=== PATIENT | female | born 1955 | race Caucasian/White ===

== ENCOUNTER 2018-09-23 23:42 | Outpatient (CLI) | payer MEDICARE, OTHER | END 2018-09-23 23:43 | disposition critical access hospital (66) | LOC: EMS 23:42 | PROVIDERS: ATTEND Surgery | DX: I46.9 Cardiac arrest, cause unspecified (principal) | CPT/HCPCS: A0425; A0433 ==

== ENCOUNTER 2018-09-24 | Emergency (ER) | payer MEDICARE, OTHER ==
[2018-09-24] MEDS ORDERED: EPINEPHrine 1 MG/ML AMP ONE (00:15)
[2018-09-24] MEDS ORDERED: SODIUM BICARBONATE ABBOJECT 50 MEQ/50 ML SYRINGE IVP STA ×2 (00:23→01:00)
[2018-09-24] MEDS ORDERED: EPINEPHrine ABBOJECT 1 MG/10 ML SYRINGE IVP STA ×3 (00:23→02:13)
[2018-09-24] MEDS ORDERED: SODIUM CHLORIDE 0.9% 1,000 ML IV ONE (00:23)
--- NOTE | 2018-09-24 00:37 | ED Physician Documentation ---
PD HPI CPR - Stated complaint Stated Complaint: CARDIAC - Chief complaint Chief Complaint: Critical Care - History obtained from History obtained from: Family, EMS - History of Present Illness Timing - onset: How many minutes ago (40) Timing - onset during: Light activity Preceding symptoms: Weakness, Other (knee pain) Contributing factors: CAD, Other (liver problems from alcohol. The patient's ex- states she had had problems with her knees and significant arthritis. She had had chronic alcoholism and subsequent liver problems. She is not in liver failure per se that he knows of. She did not have any kidney problems. She has had some heart problems he believes.) Witnessed: Arrest witnessed (The patient was seen by her ex- to be complaining of her knee and then get pale and sweaty and then collapsed. He did not feel any pulses. He started CPR and called EMS. EMS found the patient to be pulseless with a slow heart rate in the 20s or 30s. They commenced ACLS measures and gave epinephrine. They also intubated the patient. They state she did have a fast heart rate at times and had a shockable rhythm of apparent V. tach twice. She did have palpable pulses after some interventions and was brought here to the ER. They said she had had pulses in a heart rhythm just at their arrival here.) Fall: No fall Bystander CPR: Bystander CPR EMS findings: Unresponsive, Agonal breathing, Pulseless, PEA, Bradycardia Treatment COMPUTING CONSULTANT: CPR, Defibrillated, Intubated, Epi, Atropine Advanced directive: No advanced directive Review of Systems Unable to obtain: Unresponsive PD PAST MEDICAL HISTORY - Past Medical History Cardiovascular: Hypertension GI: Cirrhosis Musculoskeletal: Osteoarthritis PD ED PE NORMAL - Vitals Vital signs reviewed: Yes - General General: Well developed/nourished, Other (Intubated with bag respirations. She had an intraosseous IV in place. The abdomen was not distended. She has not making any respiratory effort. Her pupils are fixed and dilated.) - HEENT HEENT: Atraumatic - Respiratory Respiratory: Clear bilaterally - Abdomen Abdomen: Non distended, Other (Bedside US did not show any free fluid. Quick limited view of upper aorta was 2.3 cm diameter. Cardiac activity was sluggish but did not show regional wall abnormality on limited view. Femoral pulses found on duplex, but not palpable. ) - Derm Derm: Warm and dry, Other (pale color) - Extremities Extremities: No deformity, No edema - Neuro Eye Opening: None Motor: None Verbal: None GCS Score: 3 Results - Vitals Vitals: Vital Signs - 24 hr 09/23/18 09/24/18 09/24/18 23:53 00:13 00:21 Heart Rate 58 L 37 L 78 Respiratory 10 L 12 20 Rate Blood Pressure 119/71 75/46 L 82/36 L O2 Saturation 100 100 100 09/24/18 09/24/18 09/24/18 00:26 00:32 00:52 Heart Rate 60 42 L Respiratory 12 25 H Rate Blood Pressure 55/37 L 58/19 L 196/142 H O2 Saturation 90 L 92 Oxygen O2 Source Ambu bag - Labs Labs: Laboratory Tests 09/24/18 09/24/18 09/24/18 00:52 00:52 00:52 WBC 6.1 RBC 2.17 L Hgb 7.7 L Hct 24.9 L MCV 115.2 H MCH 35.3 H MCHC 30.7 L RDW 20.0 H Plt Count 135 MPV 9.1 Neut # (Auto) Not Reportable Lymph # (Auto) Not Reportable Trinity # (Auto) Not Reportable Eos # (Auto) Not Reportable Baso # (Auto) Not Reportable Absolute Nucleated RBC Not Reportable Total Counted 100 Band Neuts % (Manual) 6 Abnorm Lymph % (Manual) 0 Nucleated RBC % Not Reportable Neutrophils # (Manual) 4.9 Lymphocytes # (Manual) 1.0 L Monocytes # (Manual) 0.1 Eosinophils # (Manual) 0.0 Basophils # (Manual) 0.0 Nucleated RBCs 1 Differential Comment MANUAL DIFFERENTIAL Platelet Estimate NORMAL (130-450,000) RBC Morph Micro Appear 1+ [place] Sodium 137 Potassium 7.1 H* Chloride 100 L Carbon Dioxide 9 L* Anion Gap 28.0 H BUN 15 Creatinine 1.1 H Estimated GFR (MDRD) 50 L Glucose 38 L* Calcium 6.4 L* Magnesium 2.9 H Total Bilirubin 1.9 H AST 4465 H ALT 999 H Alkaline Phosphatase 355 H Troponin I 1.11 H* Total Protein 4.0 L Albumin 1.9 L Globulin 2.1 Albumin/Globulin Ratio 0.9 L Lipase 205 H PD MEDICAL DECISION MAKING - ED course Complexity details: re-evaluated patient (By EMS report the patient had mainly bradycardia a cardiac rhythms and had received epinephrine and I believe they said atropine. She had had shockable rhythms of V. tach twice. She arrived by EMS without CPR in progress as they had had palpable pulses. She is intubated. First evaluation here once into the ER was no palpable pulses. CPR was resumed again. Her heart rhythm was bradycardic and irregular either junctional or A. fib with bundle branch block. She did have a quickening of the heart rate in response to epinephrine was going at a rate of 150-160. This did have the appearance of V. tach though it did slow down after a minute or so after the epi. She did have cardiac activity on bedside ultrasound there will looked globally sluggish. She had no palpable pulses but I could find Doppler pulses by ultrasound at the inguinal area. Her heart rate would slow down to the 30s or so after the epinephrine was wearing off. As such she was started on epi drip to support blood pressure and heart rate and also placed pacer pads on her and started pacing. She did have a pacer capture with response of 70 bpm. Again no palpable pulses but could find them by Doppler and her blood pressure was 60 systolic. We tried improved pressor support. I thought she would be stable enough for transfer but her blood pressure diminished and her cardiac act ivity diminished as well. Even with paced rhythm, the bedside ultrasound showed minimal cardiac response. I talked with her ex- who arrived to the ER and though the patient did not have a pulsed form, in discussion with him he felt her view on resuscitation that she would not want to be on ventilator or have impaired cognitive outcome and she had had several medical problems recently and was using a walker and had poor function with the left arm as well as alcoholism. The patient had a had prolonged hypoperfusion and CPR at times. She is now fixed and dilated on pupils and had had time enough for the EMS medications for sedation and paralyzed this paralysis to wear off and was not having any spontaneous respirations. CPR was intermittently done because of the lack of palpable pulses. However she had initially had Doppler pulses and cardiac activity. At this point about an hour into the resuscitation, I could not find any Doppler pulses and bedside echo with CPR held did not show any cardiac activity. There did not appear to be pacer capture, and the pacer was stopped and the underlying rythm was asystole/agonal beats. The code was then called.), considered differential (consider acute [place], aneurysmal bleed, PE, CHF, hypoxia, seizure among others.), d/w family (ex-, but has been in contact with her regularly) - Critical Care Time Includes: Direct patient care, Document care, Coordinate care, Family consult for tx dec Data interpretation: Pulse ox Procedures excluded from critical care time: CPR Departure - Departure Disposition: 20 Clinical Impression: Cardiopulmonary arrest Condition: Critical Record reviewed to determine appropriate education?: No Discharge Date/Time: 09/24/18 02:12
[2018-09-24] MEDS ORDERED: DOPamine 800 MG/500 ML 800 MG/500 ML BAG IV STA (01:00)
[2018-09-24] MEDS ORDERED: EPINEPHrine 4 MG in DEXTROSE 5% 246 ML IV SCH (01:00)
[2018-09-24 01:08] LABS: BASOPHILS % (AUTO) 1.5 %; EOSINOPHILS % (AUTO) 0.2 %; HGB - HEMOGLOBIN 7.7 g/dL (12.0-16.0); LYMPHOCYTES % (AUTO) 23.5 %; MEAN CORPUSCULAR HEMOGLOBIN 35.3 pg (27.0-31.0); MEAN CORPUSCULAR HGB CONC 30.7 g/dL (32.0-36.0); MEAN CORPUSCULAR VOLUME 115.2 fL (81.0-99.0); MEAN PLATELET VOLUME 9.1 fL (7.9-10.8); MONOCYTES % (AUTO) 3.7 %; NEUTROPHILS % (AUTO) 71.1 %; PLT - PLATELET COUNT 135 10^3/uL (130-450); RED BLOOD COUNT 2.17 10^6/uL (4.20-5.40); WHITE BLOOD COUNT 6.1 x10^3/uL (4.8-10.8)
[2018-09-24 01:11] LABS: ABNORMAL LYMPHS % (MANUAL) 0 %
[2018-09-24 01:39] LABS: ALBUMIN 1.9 g/dL (3.2-5.5); ALBUMIN/GLOBULIN RATIO 0.9 (1.0-2.2); BILIRUBIN,TOTAL 1.9 mg/dL (0.2-1.0); CREATININE 1.1 mg/dL (0.4-1.0); MAGNESIUM 2.9 mg/dL (1.7-2.8)
[2018-09-24 01:44] VITALS: BP 196/142
[2018-09-24 01:45] LABS: BAND NEUTROPHILS % (MANUAL) 6 %; LYMPHOCYTES % (MANUAL) 17 %; MONOCYTES # (MANUAL) 0.1 10^3/uL (0.0-1.0); NEUTROPHILS # (MANUAL) 4.9 10^3/uL (1.5-6.6); NEUTROPHILS % (MANUAL) 75 %
[2018-09-24 01:46] LABS: DIFFERENTIAL COMMENT MANUAL DIFFERENTIAL; PLATELET ESTIMATE, MANUAL NORMAL (130-450,000) (NORMAL)
[2018-09-24 02:12] LABS: CALCIUM 6.4 mg/dL (8.5-10.3)
[2018-09-24] MEDS ORDERED: SODIUM BICARBONATE ABBOJECT 50 MEQ/50 ML SYRINGE IVP ONE (02:12)
[2018-09-24] MEDS ORDERED: EPINEPHrine ABBOJECT 1 MG/10 ML SYRINGE IVP ONE (02:12)
[2018-09-24] MEDS ORDERED: DOPAMINE 800 MG IV ONE (02:12)
== END 2018-09-24 02:12 | disposition expired ==
LOC: ED
DX: I46.9 Cardiac arrest, cause unspecified (principal); M19.90 Unspecified osteoarthritis, unspecified site; I10 Essential (primary) hypertension; I25.10 Atherosclerotic heart disease of native coronary artery without angina pectoris; F10.20 Alcohol dependence, uncomplicated
CPT/HCPCS: 31500; 36415; 80053; 83690; 83735; 84484; 85025; 92950; 96365; 96375; 99285; 99291